=== PATIENT | female | born 1995 | race Two or more races ===

== ENCOUNTER 2020-03-10 15:28 | Inpatient (IN) | payer MEDICAID ==
[~2020-03-10] VITALS: Ht 167.6 cm; Wt 111.1 kg
[2020-03-10] MEDS ORDERED: IV RINGERS,LACTATED 1000ML 1,000 ML IV SCH ×2 (16:11→18:24)
[2020-03-10 16:31] LABS: BILIRUBIN,URINE NEGATIVE (NEG); CLARITY,URINE CLEAR; COLOR,URINE YELLOW; NITRITE,URINE NEGATIVE (NEG); PROTEIN,URINE NEGATIVE (NEG-TRACE); UROBILINOGEN,URINE 0.2 mg/dL (0.2 mg/dL)
[2020-03-10 16:39] LABS: BACTERIA,URINE MODERATE /HPF (0-FEW); GRANULAR CASTS,URINE FEW /HPF; HYALINE CASTS, URINE FEW /HPF; SQUAMOUS EPITHELIAL CELL,UR MOD /LPF; WBC,URINE >40 /HPF (0-4)
--- NOTE | 2020-03-10 17:57 | RAD ---
Exam: Ultrasound OB greater than 14 weeks Indication: Unknown presentation Technique: Real-time grayscale and color Doppler images of the pelvis were obtained by the department floor coverer. Comparisons: None FINDINGS: There is a single live intrauterine gestation in cephalic presentation. heart rate is measured at 149 bpm. measurements as follows: BPD: 9.3 cm corresponding to 37 weeks 3 days Head circumference: 32.6 cm corresponding to 37 weeks 0 days Abdominal circumference: 33.5 cm corresponding to 37 weeks 3 days Femur length: 7.7 cm corresponding to 39 weeks 1 day EMY: 11.5 Dedicated survey not performed given the emergent nature of this exam as well as limited visualization due to gestational age. Placenta is fundal and appears normal. No free fluid is identified. Ovaries are not seen. IMPRESSION: Single live intrauterine gestation in cephalic presentation measuring 37 weeks 6 days by current ultrasound. Correlate with LMP or prior dating study. Electronically signed by: Maryann Boyd MD (03/10/2020 5:54 PM) [id number]
[2020-03-10 18:04] VITALS: BP 117/66
[2020-03-10] MEDS ORDERED: DOCUSATE SODIUM 283 MG/5 ML ENEMA. PR PRN (18:30)
[2020-03-10] MEDS ORDERED: TERBUTALINE 1 MG/ML VIAL. SQ PRN (18:30)
[2020-03-10] MEDS ORDERED: LIDOCAINE 1% PF 30 ML VIAL. INJ PRN (18:30)
[2020-03-10] MEDS ORDERED: IBUPROFEN 400 MG TABLET. PO PRN (18:30)
[2020-03-10] MEDS ORDERED: 0.9 % SODIUM CHLORIDE 10 ML DISP.SYRIN. IV PRN (18:30)
[2020-03-10] MEDS ORDERED: OXYTOCIN 30 UNIT/500 ML PREMIX 500 ML IV PRN ×2 (18:30)
[2020-03-10] MEDS ORDERED: DINOPROSTONE 10 MG SUPP.VAG VG ONE (18:30)
[2020-03-10] MEDS ORDERED: CITRIC ACID/SODIUM CITRATE 30 ML SOLUTION. PO PRN (18:30)
[2020-03-10] MEDS ORDERED: fentaNYL PF VIAL 100 MCG/2 ML VIAL IVP PRN (18:30)
[2020-03-10 18:37] LABS: BASO % 0 % (0-3); EOS # 0.1 x10^3/uL (0.0-0.7); EOS % 1 % (0-3); HEMATOCRIT 37.2 % (36.0-47.0); LYMPH # 2.6 x10^3/uL (1.0-4.8); LYMPH % 22 % (24-48); MEAN CORPUSCULAR HEMOGLOBIN 25 pg (25-35); MEAN CORPUSCULAR HGB CONC 32 g/dL (31-37); MEAN CORPUSCULAR VOLUME 79 fL (79-100); MONO # 0.5 x10^3/uL (0.0-1.1); MONO % 4 % (0-9); NEUT # 8.6 x10^3/uL (1.8-7.7); NEUT % 73 % (31-73); PLATELET COUNT 219 x10^3/uL (140-400); RED BLOOD COUNT 4.72 x10^6/uL (3.50-5.40); RED CELL DISTRIBUTION WIDTH 14.2 % (11.5-14.5); WHITE BLOOD COUNT 11.8 x10^3/uL (4.0-11.0)
[2020-03-10] MEDS ORDERED: diphenhydrAMINE HCL 25 MG CAPSULE PO PRN (21:15)
[2020-03-11] MEDS ORDERED: OXYTOCIN PREMIX 30 UNIT/500 ML NS BAG. IV ONE (03:00)
[2020-03-11] MEDS ORDERED: L&D EPIDURAL SYRINGE 50 ML ONE (03:39)
[2020-03-11] MEDS ORDERED: ROPIVacaine 0.2% PF 10 ML VIAL. ONE ×4 (03:39→05:16)
[2020-03-11] MEDS ORDERED: L&D EPIDURAL 50 ML SYRINGE. ONE (04:00)
--- NOTE | 2020-03-11 06:13 | PDOC1 ---
OB - History Hx of Present Care: Good Care Ultrasounds: Normal mid trimester US Obstetrical Complications: None Medical Complications: None Past Family/Social History * Past Medical, Surgical, Family and Obstetric Histories reviewed from chart. Rubella: Immune RPR/VDRL: Negative GBS Status: Negative HBsAG: Negative OB - Chief Complaint & HPI Date of Admission: Date of Admission: Mar 10, 2020 at 18:01 Chief Complaint/History : 3 Para: 1 EGA: 40 Reason for admission: induction of labor Indication for induction: post dates Admission Nurse Assessment Rev: Yes OB - Admission Exam Physical Exam Vitals: VS - Last 72 Hours, by Label Date Time Temp Pulse Resp B/P (MAP) Pulse Ox O2 Delivery O2 Flow Rate FiO2 03/11/20 02:33 20 03/10/20 18:04 99.6 72 20 117/66 (83) Room Air 99.6 HEENT: Normal Heart: Regular Rate Lungs: Clear Abdomen: Gravid, Non tender, Soft Extremities: Edema Reflexes: Normal Cervical Dilatation: 1cm Effacement: 50% Station: -3 Membranes: Intact Heart Rate: Normal Accelerations: Accelerations Present Decelerations: No decelerations Contractions on Admission: >10 Minutes Apart Text A: 40 wks IUP IOL post term P: Admit IOL cervidil, then pitocin in am. EZEQUIEL JOSE Jr, MD Mar 11, 2020 06:13
--- NOTE | 2020-03-11 06:16 | PDOC ---
VAGINAL DELIVERY DATE DATE: 03/11/20 TIME: 06:13 : 3 Para: 2 EGA: 40 VAGINAL DELIVERY: VTX VACCUM ASSISTED: No PLACENTA: Spontaneous 8/9 SEX: Male WEIGHT Weight [ 3775 gm] Nuchal Cord: No Amniotic Fluid: Thick Meconium PAIN: Epidural EPISIOTOMY: No EXTENSION: No EBL 400 ml COMPLICATIONS none Signs of Intrauterine Infectio: None Shoulder Dystocia: Yes (less than 1 minute), Jp Maneuver, Suprapubic Pressure EZEQUIEL JOSE Jr, MD Mar 11, 2020 06:16
[2020-03-11] MEDS ORDERED: BENZOCAINE 20% TOPICAL AEROSOL SPRAY 57GM CAN. TP PRN (06:30)
[2020-03-11] MEDS ORDERED: oxyCODONE/APAP 5/325 1 TAB TABLET PO PRN (06:30)
[2020-03-11] MEDS ORDERED: MAGNESIUM HYDROXIDE 2,400 MG/30 ML ORAL.SUSP. PO PRN (06:30)
[2020-03-11] MEDS ORDERED: DOCUSATE SODIUM 100 MG CAPSULE. PO PRN (06:30)
[2020-03-11] MEDS ORDERED: 0.9 % SODIUM CHLORIDE 10 ML DISP.SYRIN. IV PRN (06:30)
[2020-03-11] MEDS ORDERED: ZOLPIDEM 5 MG TABLET. PO PRN (06:30)
[2020-03-11] MEDS ORDERED: MMR per PROTOCOL. MC PRN (06:30)
[2020-03-11] MEDS ORDERED: PHENYLEPH/MINERAL OIL/PETROLAT RECTAL OINTMENT TUBE. RC PRN (06:30)
[2020-03-11] MEDS ORDERED: MAG HYDROX/ALUMINUM HYD/SIMETH 30 ML ORAL.SUSP PO PRN (06:30)
[2020-03-11] MEDS ORDERED: OXYTOCIN 30 UNIT/500 ML PREMIX 500 ML IV PRN (06:30)
[2020-03-11] MEDS ORDERED: diphenhydrAMINE HCL 25 MG CAPSULE PO PRN (06:30)
[2020-03-11] MEDS ORDERED: SIMETHICONE 80 MG TAB.CHEW PO PRN (06:30)
[2020-03-11] MEDS ORDERED: ACETAMINOPHEN 325 MG TABLET. PO PRN (06:30)
[2020-03-11] MEDS ORDERED: HYDROCORTISONE 1% TOPICAL OINTMENT 30GM TUBE. TP PRN (06:30)
[2020-03-11] MEDS ORDERED: TDaP (Adacel) per PROTOCOL. MC PRN (06:30)
[2020-03-11] MEDS: IBUPROFEN 400 MG TABLET. PO PRN ×2 (07:47→20:12)
[2020-03-11 09:00] VITALS: BP 108/60
[2020-03-11] MEDS: MULTIVITAMIN with MINERAL TABLET. PO SCH (09:00)
[2020-03-11 10:00] VITALS: BP 105/52
[2020-03-11 14:00] VITALS: BP 109/62
[2020-03-11 18:17] VITALS: BP 110/60
[2020-03-11 22:30] VITALS: BP 117/62
[2020-03-12 02:33] VITALS: BP 103/49
[2020-03-12 05:28] LABS: BASO % 0 % (0-3); EOS % 0 % (0-3); HEMATOCRIT 30.8 % (36.0-47.0); LYMPH # 3.6 x10^3/uL (1.0-4.8); LYMPH % 35 % (24-48); MEAN CORPUSCULAR HEMOGLOBIN 26 pg (25-35); MEAN CORPUSCULAR HGB CONC 33 g/dL (31-37); MEAN CORPUSCULAR VOLUME 80 fL (79-100); MONO # 0.4 x10^3/uL (0.0-1.1); MONO % 4 % (0-9); NEUT # 6.2 x10^3/uL (1.8-7.7); NEUT % 60 % (31-73); PLATELET COUNT 167 x10^3/uL (140-400); RED BLOOD COUNT 3.86 x10^6/uL (3.50-5.40); RED CELL DISTRIBUTION WIDTH 14.5 % (11.5-14.5); WHITE BLOOD COUNT 10.3 x10^3/uL (4.0-11.0)
--- NOTE | 2020-03-12 07:26 | PDOC ---
OB Progress Note Date of Service 03/12/20 Time of Evaluation 0725 Notes Pt. feeling well. No complaints. Lab Laboratory Tests Test 03/10/20 16:00 03/10/20 16:20 03/10/20 18:02 03/12/20 04:30 Urine Collection Type Unknown Urine Color Yellow Urine Clarity Clear Urine pH 7.0 (<5.0-8.0) Urine Specific [place] 1.010 (1.000-1.030) Urine Protein Negative mg/dL (NEG-TRACE) Urine Glucose (UA) Negative mg/dL (NEG) Urine Ketones (Stick) Negative mg/dL (NEG) Urine Blood Negative (NEG) Urine Nitrite Negative (NEG) Urine Bilirubin Negative (NEG) Urine Urobilinogen Dipstick 0.2 mg/dL (0.2 mg/dL) Urine Leukocyte Esterase Moderate (NEG) Urine RBC 1-2 /HPF (0-2) Urine WBC >40 /HPF (0-4) Urine Squamous Epithelial Cells Mod /LPF Urine Bacteria Moderate /HPF (0-FEW) Urine Hyaline Casts Few /HPF Urine Granular Casts Few /HPF Urine Mucus Mod /LPF Coronavirus (PCR) Not detected (Not Detected) SARS-CoV-2 Antigen (Rapid) Negative (NEGATIVE) White Blood Count 11.8 x10^3/uL (4.0-11.0) 10.3 x10^3/uL (4.0-11.0) Red Blood Count 4.72 x10^6/uL (3.50-5.40) 3.86 x10^6/uL (3.50-5.40) Hemoglobin 12.0 g/dL (12.0-15.5) 10.0 g/dL (12.0-15.5) Hematocrit 37.2 % (36.0-47.0) 30.8 % (36.0-47.0) Mean Corpuscular Volume 79 fL (79-100) 80 fL (79-100) Mean Corpuscular Hemoglobin 25 pg (25-35) 26 pg (25-35) Mean Corpuscular Hemoglobin Concent 32 g/dL (31-37) 33 g/dL (31-37) Red Cell Distribution Width 14.2 % (11.5-14.5) 14.5 % (11.5-14.5) Platelet Count 219 x10^3/uL (140-400) 167 x10^3/uL (140-400) Neutrophils (%) (Auto) 73 % (31-73) 60 % (31-73) Lymphocytes (%) (Auto) 22 % (24-48) 35 % (24-48) Monocytes (%) (Auto) 4 % (0-9) 4 % (0-9) Eosinophils (%) (Auto) 1 % (0-3) 0 % (0-3) Basophils (%) (Auto) 0 % (0-3) 0 % (0-3) Neutrophils # (Auto) 8.6 x10^3/uL (1.8-7.7) 6.2 x10^3/uL (1.8-7.7) Lymphocytes # (Auto) 2.6 x10^3/uL (1.0-4.8) 3.6 x10^3/uL (1.0-4.8) Monocytes # (Auto) 0.5 x10^3/uL (0.0-1.1) 0.4 x10^3/uL (0.0-1.1) Eosinophils # (Auto) 0.1 x10^3/uL (0.0-0.7) 0.0 x10^3/uL (0.0-0.7) Basophils # (Auto) 0.0 x10^3/uL (0.0-0.2) 0.0 x10^3/uL (0.0-0.2) Treponema pallidum Antibody Nonreactive (Nonreactive) Laboratory Tests Test 03/12/20 04:30 White Blood Count 10.3 x10^3/uL (4.0-11.0) Red Blood Count 3.86 x10^6/uL (3.50-5.40) Hemoglobin 10.0 g/dL (12.0-15.5) Hematocrit 30.8 % (36.0-47.0) Mean Corpuscular Volume 80 fL (79-100) Mean Corpuscular Hemoglobin 26 pg (25-35) Mean Corpuscular Hemoglobin Concent 33 g/dL (31-37) Red Cell Distribution Width 14.5 % (11.5-14.5) Platelet Count 167 x10^3/uL (140-400) Neutrophils (%) (Auto) 60 % (31-73) Lymphocytes (%) (Auto) 35 % (24-48) Monocytes (%) (Auto) 4 % (0-9) Eosinophils (%) (Auto) 0 % (0-3) Basophils (%) (Auto) 0 % (0-3) Neutrophils # (Auto) 6.2 x10^3/uL (1.8-7.7) Lymphocytes # (Auto) 3.6 x10^3/uL (1.0-4.8) Monocytes # (Auto) 0.4 x10^3/uL (0.0-1.1) Eosinophils # (Auto) 0.0 x10^3/uL (0.0-0.7) Basophils # (Auto) 0.0 x10^3/uL (0.0-0.2) Medications Current Medications Ringer's Solution 1,000 ml @ 125 mls/hr Q8H IV Last administered on 03/10/20at 16:02; Start 03/10/20 at 16:11 Sodium Chloride (Normal Saline Flush) 3 ml QSHIFT PRN IV AFTER MEDS AND BLOOD DRAWS; Start 03/10/20 at 18:30 Ringer's Solution 1,000 ml @ 125 mls/hr Q8H IV ; Start 03/10/20 at 18:24 Fentanyl Citrate (Fentanyl 2ml Vial) 100 mcg PRN Q30MIN PRN IVP Severe pain Last administered on 03/11/20at 02:33; Start 03/10/20 at 18:30 Citric Acid/ Sodium Citrate (Bicitra) 30 ml 1X PRN PRN PO DYSPEPSIA; Start 03/10/20 at 18:30; Stop 03/11/20 at 18:29; Status DC Terbutaline Sulfate (Brethine) 0.25 mg 1X PRN PRN SQ SEE COMMENTS; Start 03/10/20 at 18:30; Stop 03/11/20 at 18:29; Status DC Lidocaine HCl (Xylocaine 1% Pf 30ml Vial) 30 ml 1X PRN PRN INJ SEE COMMENTS; Start 03/10/20 at 18:30; Stop 03/12/20 at 18:29 Oxytocin/Sodium Chloride 500 ml @ 0 mls/hr CONT PRN IV SEE I/O RECORD; Start 03/10/20 at 18:30 Oxytocin/Sodium Chloride 500 ml @ 0 mls/hr CONT PRN PRN IV Post delivery bleeding; Start 03/10/20 at 18:30 Ibuprofen (Motrin) 800 mg PRN Q6HRS PRN PO PAIN; Start 03/10/20 at 18:30; Stop 03/11/20 at 09:46; Status DC Docusate Sodium (Enemeez) 283 mg PRN DAILY PRN MO CONSTIPATION; Start 03/10/20 at 18:30 Dinoprostone (Cervidil) 10 mg 1X ONCE VG Last administered on 03/10/20at 18:42; Start 03/10/20 at 18:30; Stop 03/10/20 at 18:31; Status DC Diphenhydramine HCl (Benadryl) 50 mg PRN QHS PRN PO INSOMNIA 1ST CHOICE Last administered on 03/10/20at 22:13; Start 03/10/20 at 21:15 Ropivacaine (Naropin 0.2%) 10 ml STK-MED ONCE .ROUTE ; Start 03/11/20 at 03:39; Stop 03/11/20 at 03:39; Status DC Fentanyl Citrate 50 ml @ As Directed STK-MED ONCE .ROUTE ; Start 03/11/20 at 03:39; Stop 03/11/20 at 03:40; Status DC Ropivacaine (Naropin 0.2%) 10 ml STK-MED ONCE .ROUTE ; Start 03/11/20 at 05:16; Stop 03/11/20 at 05:16; Status DC Sodium Chloride (Normal Saline Flush) 10 ml QSHIFT PRN IV AFTER MEDS AND BLOOD DRAWS; Start 03/11/20 at 06:30 Oxytocin/Sodium Chloride 500 ml @ 62.5 mls/hr CONT PRN IV SEE I/O RECORD; Start 03/11/20 at 06:30; Stop 03/11/20 at 14:29; Status DC Acetaminophen (Tylenol) 650 mg PRN Q6HRS PRN PO MILD PAIN / TEMP > 100.3'F; Start 03/11/20 at 06:30 Ibuprofen (Motrin) 800 mg PRN Q8HRS PRN PO INFLAMMATION/PAIN PREVENTION Last administered on 03/11/20at 20:12; Start 03/11/20 at 06:30 Docusate Sodium (Colace) 100 mg PRN BID PRN PO HARD STOOL; Start 03/11/20 at 06:30 Magnesium Hydroxide (Milk Of Magnesia) 2,400 mg PRN DAILY PRN PO CONSTIPATION; Start 03/11/20 at 06:30 Al Hydroxide/Mg Hydroxide (Mylanta Plus Xs) 30 ml PRN Q4HRS PRN PO HEARTBURN / GAS; Start 03/11/20 at 06:30 Simethicone (Gas-X) 80 mg PRN AFTMEALHC PRN PO GAS / BLOATING; Start 03/11/20 at 06:30 Diphenhydramine HCl (Benadryl) 25 mg PRN Q6HRS PRN PO ITCHING; Start 03/11/20 at 06:30 Benzocaine (Americaine) 1 spray PRN QID PRN TP TOPICAL PAIN; Start 03/11/20 at 06:30 Phenyleph/Shark Oil/Min Oil/Petrol (Preparation H) 1 bo PRN QID PRN RC RECTAL PAIN; Start 03/11/20 at 06:30 Hydrocortisone (Cortaid) 1 bo PRN QID PRN TP PERINEAL PAIN; Start 03/11/20 at 06:30 Ferrous Sulfate (Feosol) 325 mg BIDWMEALS PO ; Start 03/12/20 at 08:00 Zolpidem Tartrate (Ambien) 5 mg PRN QHS PRN PO INSOMNIA, MAY REPEAT X1; Start 03/11/20 at 06:30 Info (Do NOT chart on this placeholder) 1 ea 1X PRN PRN MC SEE COMMENTS; Start 03/11/20 at 06:30 Info (Do NOT chart on this placeholder) 1 ea 1X PRN PRN MC SEE COMMENTS; Start 03/11/20 at 06:30 Oxycodone/ Acetaminophen (Percocet 5/325) 2 tab PRN Q4HRS PRN PO MODERATE PAIN, SEVERE PAIN Last administered on 03/11/20at 06:38; Start 03/11/20 at 06:30 Multivitamins (Thera M Plus) 1 tab DAILY PO ; Start 03/11/20 at 09:00 Fentanyl Citrate (Ndbdztvo-Ppjup-IR 3 Mcg-0.1%) 50 ml STK-MED ONCE .ROUTE ; Start 03/11/20 at 04:00; Stop 03/11/20 at 08:57; Status DC Ropivacaine (Naropin 0.2%) 20 ml STK-MED ONCE .ROUTE ; Start 03/11/20 at 04:00; Stop 03/11/20 at 08:57; Status DC Oxytocin/Sodium Chloride (Oxytocin Premix Infusion) 30 unit STK-MED ONCE IV ; Start 03/11/20 at 03:00; Stop 03/11/20 at 08:58; Status DC Ropivacaine (Naropin 0.2%) 10 ml STK-MED ONCE .ROUTE ; Start 03/11/20 at 04:00; Stop 03/11/20 at 09:00; Status DC Exam Abd: soft, non tender, fundus firm Assessment PPD#1 s/p Plan of Care: Continue current Tx, Mgmt EZEQUIEL JOSE Jr, MD Mar 12, 2020 07:26
[2020-03-12] MEDS ORDERED: FERROUS SULFATE 325 MG TABLET. PO SCH (08:00)
[2020-03-12] MEDS: MULTIVITAMIN with MINERAL TABLET. PO SCH (08:23)
[2020-03-12 12:00] VITALS: BP 104/66
[2020-03-12 17:45] VITALS: BP 109/68
--- NOTE | 2020-03-13 17:06 | PATHOLOGY ---
[facility] Accession Number: [id number] . 01 Material submitted: . placenta - PLACENTA . 01 Clinical history: . . EDC: 03/10/2020 with francisco fluid Live 8, 9 . 02 Diagnosis: 438 gram term placenta of an estimated 40 weeks gestation with attached membranes and umbilical cord and separate segment of umbilical cord: - Meconium staining of placental membranes. - Intervillous thrombus with focal villous entrapment and ischemic degeneration and adjacent intervillous fibrin deposition. - Focal mild villous edema. - Focal early mild acute phlebitis of umbilical cord. - Retromembraneous hematoma. LBQ 03/13/2020 1516 Local . 02 Comment: There is no evidence of an acute chorioamnionitis or villitis. There are no infarcts. (JPM/db; 03/13/2020) . 02 Electronically signed: . Pavan Cortes MD, Pathologist NPI- [id number] . 01 Gross description: . The specimen is received in formalin labeled "Brigitte Sifuentes, placenta" and consists of an oval rodríguez placenta measuring 16.8 x 13.6 x 4.0 cm and weighing 438 g after removal of membranes and umbilical cord. The membranes are green, reed, thin, and translucent with moderate retro-membranous clot. The surface is green-reed and well vascularized with an eccentrically inserted 3 vessel umbilical cord, 3.5 cm from edge. The cord measures 20.6 cm in length and 1.1 cm in diameter with increased twists and no true knots. Received separately is a clamped segment of umbilical cord measuring 15.3 cm in length and 1.8 cm in diameter showing moderate twists. The maternal surface shows complete and intact cotyledons with approximately 50% surface calcifications. Sectioning reveals a maroon-red and spongy parenchyma with a single ortiz lesion measuring 1.1 cm. Logistic Manager sections are submitted as follows: . A1: Surface vessels A2: Umbilical cord and membrane rolls A3: Lesion A4-A5: Full-thickness sections (SDY; 03/12/2020) SYU/SYU 03/12/2020 1619 Local . 02 Pathologist provided ICD-10: O43.893, O77.0, Z37.0, Z3A.40 . 02 CPT . 559517 Specimen Comment: A courtesy copy of this report has been sent to [phone] Specimen Comment: [id number] Specimen Comment: Report sent to / DR SOLITARIO Performed at: 01 [facility] [address], [place] [id number] MD Nomi Miner MD Phone: [phone] Performed at: 02 [facility] [address], [place] [id number] MD Pavan Cortes MD Phone: [phone]
--- NOTE | 2020-03-21 12:52 | PDOC3 ---
OB DISCHARGE SUMMARY DATE OF ADMISSION: 03/11/20 DATE OF DISCHARGE: 03/12/20 REASON FOR ADMISSION: Onset of labor INTRAPARTUM PROCEDURES: Spontanous Vag Deliv DISCHARGE DIAGNOSIS: Term Delivered DISCHARGE INFORMATION: Activity (ad cheryl), Diet (regular diet), Instructions (pelvic rest x 6 wks) HOSPITAL COURSE Term gestation delivered vaginally without complications. EZEQUIEL JOSE Jr, MD Mar 21, 2020 12:52
== END 2020-03-12 21:14 | disposition home or self-care (01) | DRG 806 ==
LOC: 3 SO LND 15:28 → OBSVTOIN 18:01
PROVIDERS: ADMIT Obstetrics & Gynecology; ATTEND Obstetrics & Gynecology
PROC: 10E0XZZ Delivery of Products of Conception, External Approach (ICD-10-PCS; principal; 2020-03-11)
PROC: 3E0P7VZ Introduction of Hormone into Female Reproductive, Via Natural or Artificial Opening (ICD-10-PCS; 2020-03-11)
PROC: 3E033VJ Introduction of Other Hormone into Peripheral Vein, Percutaneous Approach (ICD-10-PCS; 2020-03-11)
PROC: 3E0R3BZ Introduction of Anesthetic Agent into Spinal Canal, Percutaneous Approach (ICD-10-PCS; 2020-03-11)
PROC: 00HU33Z Insertion of Infusion Device into Spinal Canal, Percutaneous Approach (ICD-10-PCS; 2020-03-11)
DX: O48.0 Post-term pregnancy (principal); R71.0 Precipitous drop in hematocrit; Z37.0 Single live birth; O66.0 Obstructed labor due to shoulder dystocia; O77.0 Labor and delivery complicated by meconium in amniotic fluid; Z3A.40 40 weeks gestation of pregnancy; Z03.818 Encounter for observation for suspected exposure to other biological agents ruled out
CPT/HCPCS: 36415; 76805; 81001; 85025; 86592; 86850; 86900; 86901; 87086; 87426; 88307; G0378; G0379; J2590; J2795; J3010; J7120; Q0163; U0003-CS

== ENCOUNTER 2020-11-03 09:57 | Emergency (ER) | payer MEDICAID ==
[~2020-11-03] VITALS: Ht 167.6 cm; Wt 114.0 kg
[2020-11-03 11:08] LABS: BASO % 0 % (0-3); EOS # 0.1 x10^3/uL (0.0-0.7); EOS % 1 % (0-3); HEMOGLOBIN 12.5 g/dL (12.0-15.5); LYMPH # 2.5 x10^3/uL (1.0-4.8); LYMPH % 37 % (24-48); MEAN CORPUSCULAR HEMOGLOBIN 26 pg (25-35); MEAN CORPUSCULAR HGB CONC 32 g/dL (31-37); MEAN CORPUSCULAR VOLUME 81 fL (79-100); MONO # 0.5 x10^3/uL (0.0-1.1); MONO % 7 % (0-9); NEUT # 3.7 x10^3/uL (1.8-7.7); NEUT % 55 % (31-73); PLATELET COUNT 237 x10^3/uL (140-400); RED CELL DISTRIBUTION WIDTH 14.1 % (11.5-14.5); WHITE BLOOD COUNT 6.8 x10^3/uL (4.0-11.0)
[2020-11-03 11:17] LABS: BILIRUBIN,URINE NEGATIVE (NEG); CLARITY,URINE CLEAR; COLOR,URINE YELLOW; NITRITE,URINE POSITIVE (NEG); PROTEIN,URINE NEGATIVE (NEG-TRACE); UROBILINOGEN,URINE 0.2 mg/dL (0.2 mg/dL)
[2020-11-03 11:26] LABS: CALCIUM 8.3 mg/dL (8.5-10.1); CREATININE 0.6 mg/dL (0.6-1.0); GFR 119.9; POTASSIUM 3.9 mmol/L (3.5-5.1)
[2020-11-03 11:34] LABS: ALBUMIN/GLOBULIN RATIO 0.8 (1.0-1.7); TOTAL BILIRUBIN 0.3 mg/dL (0.2-1.0)
[2020-11-03 11:50] LABS: BACTERIA,URINE MOD /HPF (0-FEW); RBC,URINE 0 /HPF (0-2)
[2020-11-03] MEDS ORDERED: FAMO-63 PO (12:33)
--- NOTE | 2020-11-03 12:33 | PHYS DOC ---
Past Medical History Past Medical History: No Pertinent History Past Surgical History: No Surgical History Smoking Status: Never Smoker Alcohol Use: None Adult General Chief Complaint Chief Complaint: ABDOMINAL PAIN HPI HPI Patient is a 25 year old male with no significant past med history presents emergency department complaint of new onset of abdominal pain. Patient states that for the last week she has had new onset of midepigastric abdominal pain without nausea no episodes of vomiting. Patient states that she had issues with acid reflux in the past. Denies any fever, chills, back pain, diarrhea, dysuria pyuria. Patient does not believe she is .. Review of Systems Review of Systems Constitutional: Denies fever or chills [] Eyes: Denies change in visual acuity, redness, or eye pain [] HENT: Denies nasal congestion or sore throat [] Respiratory: Denies cough or shortness of breath [] Cardiovascular: No additional information not addressed in HPI [] GI: Denies abdominal pain, nausea, vomiting, bloody stools or diarrhea [] : Denies dysuria or hematuria [] Musculoskeletal: Denies back pain or joint pain [] Integument: Denies rash or skin lesions [] Neurologic: Denies headache, focal weakness or sensory changes [] Endocrine: Denies polyuria or polydipsia [] All other systems were reviewed and found to be within normal limits, except as documented in this note. Allergies Allergies Allergies Coded Allergies Type Severity Reaction Last Updated Verified No Known Drug Allergies 03/10/20 No Physical Exam Physical Exam Constitutional: Well developed, well nourished, no acute distress, non-toxic ap pearance. [] HENT: Normocephalic, atraumatic, bilateral external ears normal, oropharynx moist, no oral exudates, nose normal. [] Eyes: PERRLA, EOMI, conjunctiva normal, no discharge. [] Neck: Normal range of motion, no tenderness, supple, no stridor. [] Cardiovascular:Heart rate regular rhythm, no murmur [] Lungs & Thorax: Bilateral breath sounds clear to auscultation [] Abdomen: Bowel sounds normal, soft, very mild epigastric tenderness, no masses, no pulsatile masses. [] Skin: Warm, dry, no erythema, no rash. [] Back: No tenderness, no CVA tenderness. [] Extremities: No tenderness, no cyanosis, no clubbing, ROM intact, no edema. [] Neurologic: Alert and oriented X 3, normal motor function, normal sensory function, no focal deficits noted. [] Psychologic: Affect normal, judgement normal, mood normal. [] Current Patient Data Vital Signs Vital Signs Date Time Temp Pulse Resp B/P (MAP) Pulse Ox O2 Delivery O2 Flow Rate FiO2 11/03/20 10:25 98.4 71 20 125/73 (90) 98 Room Air 98.4 Lab Values Laboratory Tests Test 11/03/20 10:20 11/03/20 10:32 11/03/20 10:48 Urine Collection Type Unknown Urine Color Yellow Urine Clarity Clear Urine pH 6.0 (<5.0-8.0) Urine Specific [place] 1.015 (1.000-1.030) Urine Protein Negative mg/dL (NEG-TRACE) Urine Glucose (UA) Negative mg/dL (NEG) Urine Ketones (Stick) Negative mg/dL (NEG) Urine Blood Negative (NEG) Urine Nitrite Positive (NEG) Urine Bilirubin Negative (NEG) Urine Urobilinogen Dipstick 0.2 mg/dL (0.2 mg/dL) Urine Leukocyte Esterase Moderate (NEG) Urine RBC 0 /HPF (0-2) Urine WBC 1-4 /HPF (0-4) Urine Squamous Epithelial Cells Many /LPF Urine Bacteria Mod /HPF (0-FEW) POC Urine HCG, Qualitative Hcg negative (Negative) White Blood Count 6.8 x10^3/uL (4.0-11.0) Red Blood Count 4.80 x10^6/uL (3.50-5.40) Hemoglobin 12.5 g/dL (12.0-15.5) Hematocrit 39.0 % (36.0-47.0) Mean Corpuscular Volume 81 fL (79-100) Mean Corpuscular Hemoglobin 26 pg (25-35) Mean Corpuscular Hemoglobin Concent 32 g/dL (31-37) Red Cell Distribution Width 14.1 % (11.5-14.5) Platelet Count 237 x10^3/uL (140-400) Neutrophils (%) (Auto) 55 % (31-73) Lymphocytes (%) (Auto) 37 % (24-48) Monocytes (%) (Auto) 7 % (0-9) Eosinophils (%) (Auto) 1 % (0-3) Basophils (%) (Auto) 0 % (0-3) Neutrophils # (Auto) 3.7 x10^3/uL (1.8-7.7) Lymphocytes # (Auto) 2.5 x10^3/uL (1.0-4.8) Monocytes # (Auto) 0.5 x10^3/uL (0.0-1.1) Eosinophils # (Auto) 0.1 x10^3/uL (0.0-0.7) Basophils # (Auto) 0.0 x10^3/uL (0.0-0.2) Sodium Level 140 mmol/L (136-145) Potassium Level 3.9 mmol/L (3.5-5.1) Chloride Level 105 mmol/L (98-107) Carbon Dioxide Level 27 mmol/L (21-32) Anion Gap 8 (6-14) Blood Urea Nitrogen 7 mg/dL (7-20) Creatinine 0.6 mg/dL (0.6-1.0) Estimated GFR (Cockcroft-Gault) 119.9 BUN/Creatinine Ratio 12 (6-20) Glucose Level 92 mg/dL (70-99) Calcium Level 8.3 mg/dL (8.5-10.1) L Total Bilirubin 0.3 mg/dL (0.2-1.0) Aspartate Amino Transferase (AST) 16 U/L (15-37) Alanine Aminotransferase (ALT) 29 U/L (14-59) Alkaline Phosphatase 77 U/L (46-116) Total Protein 7.0 g/dL (6.4-8.2) Albumin 3.0 g/dL (3.4-5.0) L Albumin/Globulin Ratio 0.8 (1.0-1.7) L Lipase 109 U/L (73-393) Laboratory Tests 11/03/20 10:48 Laboratory Tests 11/03/20 10:48 EKG EKG [] Radiology/Procedures Radiology/Procedures [] Course & Med Decision Making Course & Med Decision Making Pertinent Labs and Imaging studies reviewed. (See chart for details) 25F with mild midepigastric abdominal pain and minimal tenderness most consistent with acute gastritis or acid reflux. No Larose sign to suggest acute cholecystitis. No significant tenderness in the region suggest appendicitis or diverticulitis. Labs were obtained and unremarkable at this time I do not s uspect any life or limb threatening intra-abdominal pathology. Patient symptoms did improve with Zofran and Pepcid. This time will discharge home with treatment for gastritis and PCP follow Jesus Disclaimer Jesus Disclaimer This electronic medical record was generated, in whole or in part, using a voice recognition dictation system. Departure Departure Impression: Primary Impression: Gastritis, acute Disposition: 01 DC HOME SELF CARE/HOMELESS Condition: GOOD Referrals: ANAMARIA DAUGHERTY MD Patient Instructions: Gastrin Additional Instructions: EMERGENCY DEPARTMENT GENERAL DISCHARGE INSTRUCTIONS Thank you for coming to [facility] Emergency Department (ED) today and trusting us with you care. We trust that you had a positive experience in our Emergency Department. If you wish to speak to the department management, you may call the Director at [phone]. YOUR FOLLOW UP INSTRUCTIONS ARE FOLLOWS: 1. Do you have a private Doctor? If you do not have a private doctor, please ask for a resource list of physicians or clinics that may be able to assist you with follow up care. 2. The Emergency Physicain has interpreted your x-rays. The X-Ray specialist will also review them. If there is a change in the findings, you will be notified in 48 hours when at all possible. 3. A lab test or culture has been done, your results will be reviewed and you will be notified if you need a change in treatment. ADDITIONAL INSTRUCTIONS AND INFORMATION: 1. Your care today has been supervised by a physician who is specially trained in emergency care. Many problems require more than one evaluation for a complete diagnosis and treatment. We recommend that you schedule your follow up appointment as recommended to ensure complete treatment of you illness or injury. If you are unable to obtain follow up care and continue to have a problem, or if your condition worsens, we recommend that you return to the ED. 2. We are not able to safely determine your condition over the phone nor are we able to give sound medical advice over the phone. For these safety reasons, if you call for medical advice we will ask you to come to the ED for further evaluation. 3. If you have any questions regarding these discharge instructions please call the ED at [phone]. SAFETY INFORMATION: In the interest of safety, wellness, and injury prevention; we encourage you to wear your sealbelt, if you smoke; quite smoking, and we encourage family to use a protective helmet for bicycling and other sporting events that present an increased risk for head injury. IF YOUR SYMPTOMS WORSEN OR NEW SYMPTOMS DEVELOP, OR YOU HAVE CONCERNS ABOUT YOUR CONDITION; OR IF YOUR CONDITION WORSENS WHILE YOU ARE WAITING FOR YOUR FOLLOW UP APPOINTMENT; EITHER CONTACT YOUR PRIMARY CARE DOCTOR, THE PHYSICIAN WHOSE NAME AND NUMBER YOU WERE GIVEN, OR RETURN TO THE ED IMMEDIATELY. Scripts Famotidine (PEPCID) 20 Mg Tablet 20 MG PO BID, #30 TAB Prov: GLADYS FERREIRA MD 11/03/20 GLADYS FERREIRA MD Nov 03, 2020 12:33
[2020-11-03 13:12] VITALS: BP 124/78
== END 2020-11-03 13:13 | disposition home or self-care (01) ==
LOC: ER 09:57
DX: K29.00 Acute gastritis without bleeding (principal); R10.13 Epigastric pain
CPT/HCPCS: 36415; 80053; 81001; 81025; 83690; 85025; 99283